=== PATIENT | male | born 1965 | race Caucasian/White ===

== ENCOUNTER 2017-12-26 00:36 | Inpatient (IN) | payer OTHER ==
--- NOTE | 2017-12-26 00:53 | RADIOLOGY REPORT (SQ) ---
EXAM DESCRIPTION: XR CHEST 1 VIEW COMPLETED DATE/TME: 12/26/2017 00:00 CLINICAL HISTORY: 52 years Male, Stroke alert, preadmit screening COMPARISON: None. NUMBER OF VIEWS/TECHNIQUE: 1/AP FINDINGS: Adequate lung volume, clear parenchyma, normal cardiac silhouette, and intact bony thorax. IMPRESSION: No acute cardiopulmonary findings.
--- NOTE | 2017-12-26 00:58 | RADIOLOGY REPORT (SQ) ---
EXAM DESCRIPTION: CT HEAD WITHOUT IV CONTRAST COMPLETED DATE/TME: 12/26/2017 00:00 CLINICAL HISTORY: 52 years Male, Stroke alert COMPARISON: None. TECHNIQUE: No contrast. Coronal and sagittal reformat. This exam was performed according to our departmental dose-optimization program, which includes automated exposure control, adjustment of the mA and/or kV according to patient size and/or use of iterative reconstruction technique. FINDINGS: No hemorrhage or infarct. No mass, mass effect, or midline shift. 1.6 hour left maxillary retention cyst mucocele. Brain and extra-axial structures appear otherwise intact. IMPRESSION: No acute findings.
[2017-12-26] MEDS ORDERED: ASPIRIN 325 MG TABLET PO ONE (01:04)
--- NOTE | 2017-12-26 01:07 | ER Document Report ---
ED NIH Stroke Scale - NIH Stroke Scale *: 1. NIH scale should be completed with appropriate accompanying assessment tools. *: 2. The NIH should reflect what the patient is capable of doing and should not be coached by the clinician. 1a. Level of Consciousness: 0=Alert;keenly responsive -: 1=Drowsy -: 2=Obtunded -: 3=Coma/unresponsive or reflex to noxious stimuli. 1a. Responses: 0 1b. Orientation Questions: a. What month is it? -: b. How old are you? -: 0=Answers both questions correctly. -: 1=Answers one question correctly or patient is intubated or has orotracheal trauma. -: 2=Answers neither question correctly. 1b. Responses: 0 1c. Response to commands: a. Open and close eyes? -: b. Molder Machine Tender and release hand? -: Credit is given despite weakness. Demonstration of task is permitted. Substitute command if hands cannot be used. -: 0=Performs both tasks correctly -: 1=Performs one task correctly -: 2=Performs neither task correctly 1c. Responses: 0 2. Gaze: Establish eye contact and instruct patient to "Follow my finger" -: 0=Normal -: 1=Partial gaze palsy. Gaze is abnormal in one or both eyes, but where forced deviation or total gaze paresis is not present. -: 2=Forced deviation or total gaze paresis. 2. Responses: 0 3. Visual El: Sees fingers in all four quadrants. -: 0=No visual loss. -: 1=Partial hemianopsia. -: 2=Complete hemianopsia. -: 3=Bilateral hemianopsia (including Cortical blindness) 3. Responses: 0 4. Facial Movement: Instruct patient to: -: a. Show me your teeth -: b. Raise your eyebrows -: c. Close your eyes -: d. Smile -: 0=Normal symmetrical movement -: 1=Minor paralysis (flattened nasolabial fold, asymmetry on smiling). -: 2=Partial paralysis (total or near total paralysis of lower face). -: 3=Complete paralysis of upper and lower face 4. Responses: 1 5. Motor functions (left arm): Alternate sides and extend each arm with palms down (90 degrees if sitting or 45 degrees for supine). -: 0=No drift;limb holds for full 10 seconds. -: 1=Drift; limb holds but drifts down before full 10 seconds, but does not hit bed. -: 2=Some effort against gravity; limb cannot get to or maintain position. -: 3=No effort against gravity; limb falls. -: 4=No movement. -: UN=Amputation, joint fusion, explain in comments. 5. Responses (left arm): 1 5. Motor Functions (right arm): Alternate sides and extend each arm with palms down (90 degrees if sitting or 45 degrees for supine). -: 0=No drift;limb holds for full 10 seconds. -: 1=Drift; limb holds but drifts down before full 10 seconds, but does not hit bed. -: 2=Some effort against gravity; limb cannot get to or maintain position. -: 3=No effort against gravity; limb falls. -: 4=No movement. -: UN=Amputation, joint fusion, explain in comments. 5. Responses (right arm): 0 6. Motor Functions (left leg): With patient lying supine, alternate sides and extend each leg (30 degrees always while supine). -: 0=No drift, leg holds position for full 5 seconds -: 1=Drift; leg falls before full 5 seconds but does not hit bed. -: 2=Some effort against gravity, leg falls to bed but some effort against gravity. -: 3=No effort against gravity, leg falls to bed immediately. -: 4=No movement. -: UN=Amputation, joint fusion; explain in comments. 6. Responses (left leg): 1 6. Motor Functions (right leg): With patient lying supine, alternate sides and extend each leg (30 degrees always while supine). -: 0=No drift, leg holds position for full 5 seconds -: 1=Drift; leg falls before full 5 seconds but does not hit bed. -: 2=Some effort against gravity, leg falls to bed but some effort against gravity. -: 3=No effort against gravity, leg falls to bed immediately. -: 4=No movement. -: UN=Amputation, joint fusion; explain in comments. 6. Responses (right leg): 0 7. Limb Ataxia: With eyes open instruct patient to: -: a. "Touch your finger to your nose". -: b. "Touch your heel to your gonzalez" -: 0=Absent -: 1=Present in one limb. -: 2=Present in two limbs. -: UN=Amputation or joint fusion; explain in comments. 7. Responses: 0 8. Sensory: Test sensation using pinprick or noxious stimuli. Test as many body parts as possible. -: 0=Normal;no sensory loss -: 1=Mile to moderate sensory loss (patient feels pin prick but is less sharp on affected side). -: 2=Severe or total sensory loss. 8. Responses: 1 9. Best Language: Instruct patient to: -: a. "Describe what you see in this picture." -: b. "Name the items in this picture." -: c. "Read these sentences." -: 0=No aphasia, normal -: 1=Mild to moderate aphasia. -: 2=Severe aphasia -: 3=Mute, global aphasia, no usable speech or auditory comprehension. 9. Responses: 0 10. Articulation, Dysarthia: Instruct patient to: -: "Read these words" or "Repeat these words" -: 0=Normal -: 1=Mild to moderate; patient may slur some words but can be understood without difficulty. -: 2=Severe; patients speech so slurred as to be unintelligible in the absence of dysphasia. -: UN=Intubated or other physical barrier, explain in comments. 10. Responses: 0 11. Extinction or inattention: 0=No abnormality -: 1= Visual, tactile, auditory, spatial, or personal inattention or extinction to bilateral simulation in one or the sensory modalities. -: 2=Profound noemi-inattention or noemi-inattention to more than one modality; does not recognize own hand. 11. Responses: 0 Total Score: 4
--- NOTE | 2017-12-26 01:11 | ER Document Report ---
ED General - General Chief Complaint: S/S of Possible Stroke Stated Complaint: POSSIBLE STROKE Time Seen by Provider: 12/26/17 00:43 - Related Data Allergies/Adverse Reactions: No Known Allergies Allergy (Unverified 12/26/17 02:45) Past Medical History - Social History Smoking Status: Unknown if Ever Smoked Frequency of alcohol use: None Drug Abuse: None Family History: Reviewed & Not Pertinent Physical Exam - Vital signs Vitals: Pulse Resp BP Pulse Ox 102 H 19 187/105 H 97 12/26/17 00:51 12/26/17 00:51 12/26/17 00:51 12/26/17 00:51 Course - Re-evaluation Re-evalutation: 12/26/17 01:07 Patient is approximately 1 hour out from the onset of his strokelike symptoms. Physical exam is consistent with that of a stroke. Patient has not had any worsening or improvement of his symptoms. His stroke scale currently is 4. I explained the risks and benefits of thrombolytics with the patient and his . Also use a visual aid by using the [employer] emergency medicine visual aid in explaining the fact that thrombolytics. Patient and his showed good understanding of the risks and benefits of thrombolytics. At this time the patient does not want to receive thrombolytics. Talked to patient about calling a tertiary center about transfer to consider mechanical intervention if it is appropriate. Patient says he wants to speak with his about 15 minutes before considering this. He is concerned because of his lack of insurance also transfer. I explained to the patient that we still treat people even without insurance and understand his concerns. I will reassess the patient here in about 10 minutes and find out his decision. 12/26/17 01:22 I reassessed the patient. His symptoms are remaining the same. He said no worsening or improvement. Patient does not want to be transferred. He understands the benefits of transfer and being reassessed for possible clot retrieval. Patient says he prefers not to go through this and just wants to stay here and be admitted as an observation. He is aware that the only treatment we can offer him here as aspirin or the thrombolytics. Patient continues to refuse thrombolytics which is understanding obtainable being that his symptoms are not severe. I did make patient aware that his symptoms could worsen. Patient is aware of this. I informed patient to let us know immediately if he feels that his symptoms are worse in any way. 12/26/17 02:55 On reevaluation the patient's left leg symptoms have resolved. He has good strength and sensation in his left leg. He has been able stand and walk to the bathroom. Patient still has weakness in his left arm. Left facial droop is also improved. Patient remains hypertensive. I would not treat his hypertension as I do not want to drop it in case this is a watershed infarct. I feel dropping his pressure acutely would cause worsening of his stroke. I spoke with the hospitalist, Dr. Calderón, who agrees to evaluate the patient for admission. Dictation of this chart was performed using voice recognition software; therefore, there may be some unintended grammatical errors. - Vital Signs Vital signs: Temp Pulse Resp BP Pulse Ox 102 H 14 193/94 H 97 12/26/17 00:51 12/26/17 02:01 12/26/17 02:01 12/26/17 02:01 - Laboratory Result Diagrams: 12/26/17 00:58 12/26/17 00:58 Laboratory results interpreted by me: 12/26/17 12/26/17 12/26/17 00:57 00:58 00:58 RBC 6.06 H Hgb 17.3 H Chloride 96 L Glucose 321 H POC Glucose 319 H - EKG Interpretation by Me Additional EKG results interpreted by me: 12/26/17 01:23 EKG is reviewed and interpreted by me. EKG shows sinus tachycardia with a rate of [address] segment elevation or depression. No ischemic T-wave inversions. NM interval, QRS duration, QTc intervals are within normal range. No old EKG available for comparison. Discharge - Discharge Clinical Impression: Stroke Qualifiers: CVA mechanism: unspecified Qualified Code(s): I63.9 - Cerebral infarction, unspecified Condition: Good Admitting Provider: Hospitalist Unit Admitted: [facility]
[2017-12-26 01:19] LABS: ABSOLUTE EOSINOPHILS # (AUTO) 0.2 10^3/uL (0.0-0.6); ABSOLUTE LYMPHOCYTES (AUTO) 3.2 10^3/uL (0.5-4.7); ABSOLUTE MONOCYTES (AUTO) 0.4 10^3/uL (0.1-1.4); ABSOLUTE NEUT (AUTO) 3.9 10^3/uL (1.7-8.2); BASOPHILS % (AUTO) 0.4 % (0-2); EOSINOPHILS % (AUTO) 2.9 % (0-6); HEMATOCRIT 49.5 % (37.9-51.0); HEMOGLOBIN 17.3 g/dL (13.5-17.0); LYMPHOCYTES % (AUTO) 41.2 % (13-45); MEAN CORPUSCULAR HEMOGLOBIN 28.5 pg (27.0-33.4); MEAN CORPUSCULAR HGB CONC 34.9 g/dL (32.0-36.0); MEAN CORPUSCULAR VOLUME 82 fl (80-97); MONOCYTES % (AUTO) 5.1 % (3-13); PLATELET COUNT 242 10^3/uL (150-450); RED BLOOD COUNT 6.06 10^6/uL (4.35-5.55); RED CELL DISTRIBUTION WIDTH 13.6 % (11.5-14.0); SEGMENTED NEUTROPHILS % (AUTO) 50.4 % (42-78); TOTAL CELLS COUNTED % (AUTO) 100 %; WHITE BLOOD COUNT 7.8 10^3/uL (4.0-10.5)
[2017-12-26 01:22] LABS: INTERNATIONAL RATION (INR) 0.89; PARTIAL THROMBOPLASTIN TIME 25.5 SEC (23.5-35.8)
[2017-12-26 01:26] LABS: PROTHROMBIN TIME 12.5 SEC (11.4-15.4)
[2017-12-26 01:32] LABS: ALANINE AMINOTRANSFERASE 50 U/L (21-72); ALBUMIN 4.8 g/dL (3.5-5.0); ALKALINE PHOSPHATASE 85 U/L (38-126); ANION GAP 16 (5-19); ASPARTATE AMINO TRANSFERASE 28 U/L (17-59); BILIRUBIN,DIRECT 0.3 mg/dL (0.0-0.4); BILIRUBIN,TOTAL 0.5 mg/dL (0.2-1.3); BLOOD UREA NITROGEN 15 mg/dL (7-20); CALCIUM 10.1 mg/dL (8.4-10.2); CARBON DIOXIDE 27 mmol/L (22-30); CHLORIDE 96 mmol/L (98-107); GLUCOSE 321 mg/dL (75-110); POTASSIUM 4.2 mmol/L (3.6-5.0); SODIUM 139.3 mmol/L (137-145); TOTAL PROTEIN 8.1 g/dL (6.3-8.2)
[2017-12-26 03:03] LABS: APPEARANCE,URINE CLEAR; BILIRUBIN,URINE NEGATIVE (NEGATIVE); COLOR,URINE STRAW; GLUCOSE, URINE >=500 mg/dL (NEGATIVE); KETONES,URINE TRACE mg/dL (NEGATIVE); LEUKOCYTE ESTERASE,URINE NEGATIVE (NEGATIVE); NITRITE,URINE NEGATIVE (NEGATIVE); PROTEIN,URINE 30 mg/dL (NEGATIVE); URINE SPECIFIC GRAVITY 1.017; UROBILINOGEN,URINE NEGATIVE mg/dL (<2.0)
[2017-12-26] MEDS ORDERED: DEXTROSE 50%-WATER 25 GM/50 ML DISP.SYRIN IV PRN ×2 (04:18)
[2017-12-26] MEDS ORDERED: DEXTROSE 40% GEL 15 GM TUBE PO PRN ×2 (04:18)
[2017-12-26] MEDS ORDERED: ACETAMINOPHEN 325 MG TABLET PO PRN (04:18)
[2017-12-26] MEDS ORDERED: GLUCAGON,HUMAN RECOMB 1 MG INJ SUBCUT PRN (04:18)
--- NOTE | 2017-12-26 07:21 | PDOC H&P ---
History of Present Illness Admission Date/PCP: 12/26/17 03:08 none. Patient complains of: The left-sided weakness and facial droop History of Present Illness: KAILASH GOMEZ is a 52 year old male with past medical history of hypertension and diabetes who currently does not take medication or follow-up with PCP patient with acute onset of left-sided weakness and facial droop and slurred speech. Patient's symptoms started 1 hour prior to arrival to emergency room. Patient denies chest pain or shortness of breath or headache or dizziness or palpitation. Patient denies seizures or syncope or fever or chills no nausea vomiting. On arrival to emergency room patient was alert awake oriented however he was found to have left-sided upper and lower extremity weakness along with facial asymmetry. CT head was negative for acute process. Patient was offered TPA however he refused. EKG shows sinus tachycardia with nonspecific ST changes. His laboratory workup was unremarkable except for hyperglycemia.. His initial NIH scale was 4. Patient was referred to hospital admission. Past Medical History Cardiac Medical History: Reports: Hypertension Endocrine Medical History: Reports: Diabetes Mellitus Type 2 Social History Information Source: Patient Smoking Status: Former Smoker Number of Years Smokin Last Time Smoked: 30 yrs ago Frequency of Alcohol Use: Occasional Hx Recreational Drug Use: No Hx Prescription Drug Abuse: No Family History Family History: Reviewed & Not Pertinent Parental Family History Reviewed: No Children Family History Reviewed: No Sibling(s) Family History Reviewed.: No Medication/Allergy Allergies/Adverse Reactions: No Known Allergies Allergy (Unverified 12/26/17 02:45) Review of Systems All systems: reviewed and no additional remarkable complaints except as stated Physical Exam Vital Signs: Temp Pulse Resp BP Pulse Ox 98.5 F 108 H 20 157/92 H 96 12/26/17 04:54 12/26/17 05:00 12/26/17 05:00 12/26/17 05:00 12/26/17 05:00 Intake & Output 12/25/17 12/26/17 12/27/17 06:59 06:59 06:59 Output Total 450 Balance -450 Weight 193 lb 5.526 oz General appearance: PRESENT: no acute distress, well-developed, well-nourished Head exam: PRESENT: atraumatic, normocephalic Eye exam: PRESENT: conjunctiva pink, EOMI, PERRLA. ABSENT: scleral icterus Ear exam: PRESENT: normal external ear exam Mouth exam: PRESENT: moist, tongue midline Neck exam: ABSENT: carotid bruit, JVD, lymphadenopathy, thyromegaly Respiratory exam: PRESENT: clear to auscultation jorge. ABSENT: rales, rhonchi, wheezes Cardiovascular exam: PRESENT: RRR. ABSENT: diastolic murmur, rubs, systolic murmur Pulses: PRESENT: normal dorsalis pedis pul GI/Abdominal exam: PRESENT: normal bowel sounds, soft. ABSENT: distended, guarding, mass, organolmegaly, rebound, tenderness Rectal exam: PRESENT: deferred Gentrourinary exam: ABSENT: ecchymosis, erythema, lacerations, lesions, scrotal swelling, testicular tenderness, urethral discharge, indwelling catheter, other Extremities exam: ABSENT: calf tenderness, clubbing, full ROM, joint swelling, pedal edema, tenderness, +1 edema, +2 edema, other Neurological exam: PRESENT: alert, altered, awake, oriented to person, oriented to place, oriented to time, oriented to situation, other - Patient with left facial droop and left upper extremity 2 out of 5 in lower extremity 3 out of 5 weakness. Psychiatric exam: PRESENT: appropriate affect, normal mood. ABSENT: homicidal ideation, suicidal ideation Skin exam: PRESENT: dry, intact, warm. ABSENT: cyanosis, rash Results Laboratory Results: All labs reviewed EKG Comments: Personally reviewed by me shows sinus tachycardia with nonspecific ST-T changes Impressions: Chest X-Ray 12/26/17 00:00 IMPRESSION: No acute cardiopulmonary findings. Head CT 12/26/17 00:00 IMPRESSION: No acute findings. Status: Image reviewed by me Assessment & Plan - Diagnosis (1) CVA (cerebral vascular accident) Qualifiers: CVA mechanism: unspecified Qualified Code(s): I63.9 - Cerebral infarction, unspecified Is this a current diagnosis for this admission?: Yes Plan: Patient with left-sided weakness and facial droop most likely has CVA or TIA. Patient will be admitted as inpatient and will initiate stroke workup with MRI of the echo and carotid Doppler. Will start patient on aspirin and statin. Will check lipid panel. Speech evaluation. PT and OT. (2) HTN (hypertension), benign Is this a current diagnosis for this admission?: No Plan: Blood pressure stable will resume current home medications (3) Diabetes 1.5, managed as type 2 Is this a current diagnosis for this admission?: No Plan: Patient has hyperglycemia will start insulin sliding scale - Time Time Spent: 30 to 50 Minutes - Inpatient Certification Medical Necessity: Need for Neurological Checks
[2017-12-26] MEDS: ENOXAPARIN SODIUM INJ 40 MG/0.4 ML DISP.SYRIN SUBCUT SCH (09:15)
[2017-12-26] MEDS: ASPIRIN 325 MG TABLET, ENT COATED PO SCH (09:15)
[2017-12-26] MEDS ORDERED: LORAZEPAM INJ 2 MG/1 ML VIAL IV PRN (10:00)
--- NOTE | 2017-12-26 10:48 | EKG REPORT ---
SEVERITY:- BORDERLINE ECG - SINUS TACHYCARDIA BORDERLINE INFERIOR Q WAVES BORDERLINE T ABNORMALITIES, INFERIOR LEADS : Confirmed by: Yaquelin Damon 26-Dec-2017 10:47:14
[2017-12-26] MEDS: ONDANSETRON HCL INJ/PF 4 MG/2 ML SDV IV PRN ×2 (11:34→21:47)
--- NOTE | 2017-12-26 12:54 | Progress Note ---
Provider Note Provider Note: Patient was seen on rounds today He still has left facial droop and left sided weakness although slightly better His speech is also better His A1c is 13, he used to be on metformin but caused him GI problems and made him feel sick We will start him on Lantus 5 units at night Start IV fluids normal saline 100/h Follow-up on workup ordered on admission
[2017-12-26 13:31] LABS: CHOLESTEROL 248.34 mg/dL (0-200); TRIGLYCERIDES 524 mg/dL (<150)
[2017-12-26 13:41] LABS: DIRECT LDL 134 mg/dL (<100)
[2017-12-26] MEDS: NORMAL SALINE 1000 ML 1,000 ML IV PRN (16:06)
--- NOTE | 2017-12-26 16:19 | RADIOLOGY REPORT (SQ) ---
EXAM DESCRIPTION: MRI HEAD WITHOUT COMPLETED DATE/TIME: 12/26/2017 2:25 pm REASON FOR STUDY: cva COMPARISON: CT brain 12/26/2017 TECHNIQUE: Multiplanar imaging includes non-contrasted T1, T2, FLAIR, and diffusion with ADC map seq uences. Images stored on PACS. LIMITATIONS: Mild motion artifact FINDINGS: ANATOMY: No developmental anomalies. Normal vascular flow voids. Pituitary fossa normal. CSF SPACES: Normal in size and contour. No hemorrhage. CEREBRUM: Diffusion and FLAIR images are positive for acute nonhemorrhagic infarct in the right poste rior frontal deep periventricular white matter. This is best shown on axial image 20. No significan t local mass effect. No midline shift Remainder of the cerebral hemispheres are otherwise unremarkable. No masses. No hemorrhage. No oth er areas of ischemic change POSTERIOR FOSSA: No signal alteration. No hemorrhage. No edema, masses or mass effect. Internal thiago tory canals, cerebello-pontine angles, mastoids normal. DIFFUSION IMAGING: Positive for acute nonhemorrhagic infarct in the right posterior frontal deep abril ventricular white matter ORBITS: No masses. Globes normal. PARANASAL SINUSES: No fluid levels. Mucosa normal. OTHER: This report was called to the patient's nurse, Brigida LANGFORD 1600 hours, 12/26/2017 IMPRESSION: Acute nonhemorrhagic infarct right posterior frontal deep periventricular white matter. EVIDENCE OF ACUTE STROKE: Yes TECHNICAL DOCUMENTATION: JOB ID: [id number] [employer]- All Rights Reserved Reading location - IP[facility]workstation name: [email or web address]
[2017-12-26] MEDS ORDERED: METOCLOPRAMIDE HCL INJ/PF 10 MG/2 ML SDV IV ONE (17:00)
[2017-12-26] MEDS: INSULIN LISPRO 100 UNIT/ML 3 ML VIAL SUBCUT PRN ×2 (18:14→21:38)
[2017-12-26] MEDS: ATORVASTATIN CALCIUM 40 MG TABLET PO SCH (21:38)
[2017-12-26] MEDS ORDERED: INSULIN GLARGINE,HUM.REC.ANLOG 1,000 UNIT/10 ML UNIT SUBCUT SCH (22:00)
[2017-12-26] MEDS ORDERED: INSULIN GLARGINE,HUM.REC.ANLOG 300 UNIT/3 ML INSULN.PEN SUBCUT SCH (22:00)
[2017-12-27] MEDS: LORAZEPAM 0.5 MG TABLET PO PRN ×2 (00:01→22:26)
[2017-12-27 04:57] LABS: ABSOLUTE LYMPHOCYTES (AUTO) 3.8 10^3/uL (0.5-4.7); ABSOLUTE MONOCYTES (AUTO) 0.7 10^3/uL (0.1-1.4); BASOPHILS % (AUTO) 0.2 % (0-2); EOSINOPHILS % (AUTO) 0.4 % (0-6); HEMATOCRIT 46.4 % (37.9-51.0); HEMOGLOBIN 15.7 g/dL (13.5-17.0); LYMPHOCYTES % (AUTO) 32.5 % (13-45); MEAN CORPUSCULAR HEMOGLOBIN 27.7 pg (27.0-33.4); MEAN CORPUSCULAR HGB CONC 33.7 g/dL (32.0-36.0); MEAN CORPUSCULAR VOLUME 82 fl (80-97); MONOCYTES % (AUTO) 6.4 % (3-13); PLATELET COUNT 269 10^3/uL (150-450); RED BLOOD COUNT 5.65 10^6/uL (4.35-5.55); RED CELL DISTRIBUTION WIDTH 13.9 % (11.5-14.0); SEGMENTED NEUTROPHILS % (AUTO) 60.5 % (42-78); TOTAL CELLS COUNTED % (AUTO) 100 %; WHITE BLOOD COUNT 11.6 10^3/uL (4.0-10.5)
[2017-12-27 05:32] LABS: ALANINE AMINOTRANSFERASE 35 U/L (21-72); ALBUMIN 4.4 g/dL (3.5-5.0); ALKALINE PHOSPHATASE 72 U/L (38-126); ANION GAP 14 (5-19); ASPARTATE AMINO TRANSFERASE 56 U/L (17-59); BILIRUBIN,DIRECT 0.4 mg/dL (0.0-0.4); BILIRUBIN,TOTAL 0.7 mg/dL (0.2-1.3); BLOOD UREA NITROGEN 25 mg/dL (7-20); CALCIUM 9.3 mg/dL (8.4-10.2); CARBON DIOXIDE 27 mmol/L (22-30); CHLORIDE 101 mmol/L (98-107); GLUCOSE 262 mg/dL (75-110); POTASSIUM 3.9 mmol/L (3.6-5.0); TOTAL PROTEIN 7.7 g/dL (6.3-8.2)
[2017-12-27] MEDS: INSULIN LISPRO 100 UNIT/ML 3 ML VIAL SUBCUT PRN ×3 (08:37→22:25)
--- NOTE | 2017-12-27 10:01 | EKG REPORT ---
SEVERITY:- ABNORMAL ECG - SINUS RHYTHM RIGHT AXIS DEVIATION NONSPECIFIC T ABNORMALITIES, DIFFUSE LEADS : Confirmed by: Yaquelin Damon 27-Dec-2017 10:00:31
[2017-12-27] MEDS: ASPIRIN 325 MG TABLET, ENT COATED PO SCH (10:48)
[2017-12-27] MEDS: ENOXAPARIN SODIUM INJ 40 MG/0.4 ML DISP.SYRIN SUBCUT SCH (10:48)
--- NOTE | 2017-12-27 11:37 | PDOC PROGRESS REPORT ---
Subjective Progress Note for:: 12/27/17 Subjective:: Patient had issues with insomnia and received Ativan which helped him sleep His left leg improving in strength but the left upper extremity is actually weaker He continues to have left facial droop and slurred speech which is unchanged His A1c is 13 and was started on 5 units of Lantus which may be increased today due to hypoglycemia still Reason For Visit: LEFT SIDED WEAKNESS Physical Exam Vital Signs: Temp Pulse Resp BP Pulse Ox 97.4 F 94 16 130/71 H 98 12/27/17 07:04 12/27/17 08:00 12/27/17 08:00 12/27/17 08:00 12/27/17 08:00 Intake & Output 12/26/17 12/27/17 12/28/17 06:59 06:59 06:59 Intake Total 540 Output Total 450 400 Balance -450 140 Weight 193 lb 5.526 oz 195 lb 1.745 oz General appearance: PRESENT: no acute distress, cooperative Head exam: ABSENT: atraumatic, normocephalic Eye exam: PRESENT: EOMI, PERRLA. ABSENT: conjunctival injection, conjunctiva pink Ear exam: ABSENT: bleeding, drainage Throat exam: ABSENT: post pharyngeal erythema Neck exam: ABSENT: JVD, meningismus, tenderness, thyromegaly Respiratory exam: PRESENT: clear to auscultation jorge. ABSENT: accessory muscle use Cardiovascular exam: PRESENT: RRR. ABSENT: diastolic murmur, rubs, systolic murmur Pulses: PRESENT: normal carotid pulses Vascular exam: PRESENT: normal capillary refill GI/Abdominal exam: PRESENT: normal bowel sounds, soft. ABSENT: distended, guarding, mass, organolmegaly, rebound, tenderness Extremities exam: PRESENT: full ROM. ABSENT: calf tenderness, clubbing, pedal edema Neurological exam: PRESENT: alert, awake, oriented to person, oriented to place , oriented to time, oriented to situation, other - Left-sided hemiparesis and left facial droop and slight dysarthria Results Laboratory Results: 12/27/17 04:15 12/27/17 04:15 12/27/17 12/27/17 04:15 04:15 WBC 11.6 H RBC 5.65 H Hgb 15.7 Hct 46.4 MCV 82 MCH 27.7 MCHC 33.7 RDW 13.9 Plt Count 269 Seg Neutrophils % 60.5 Lymphocytes % 32.5 Monocytes % 6.4 Eosinophils % 0.4 Basophils % 0.2 Absolute Neutrophils 7.0 Absolute Lymphocytes 3.8 Absolute Monocytes 0.7 Absolute Eosinophils 0.0 Absolute Basophils 0.0 Sodium 142.0 Potassium 3.9 Chloride 101 Carbon Dioxide 27 Anion Gap 14 BUN 25 H Creatinine 1.05 Est GFR ( Amer) > 60 Est GFR (Non-Af Amer) > 60 Glucose 262 H Calcium 9.3 Total Bilirubin 0.7 AST 56 ALT 35 Alkaline Phosphatase 72 Total Protein 7.7 Albumin 4.4 Impressions: Chest X-Ray 12/26/17 00:00 IMPRESSION: No acute cardiopulmonary findings. Head CT 12/26/17 00:00 IMPRESSION: No acute findings. Head MRI 12/26/17 00:00 IMPRESSION: Acute nonhemorrhagic infarct right posterior frontal deep periventricular white matter. EVIDENCE OF ACUTE STROKE: Yes Assessment & Plan - Diagnosis (1) CVA (cerebral vascular accident) Qualifiers: CVA mechanism: unspecified Qualified Code(s): I63.9 - Cerebral infarction, unspecified Is this a current diagnosis for this admission?: Yes Plan: The patient refused TPA on admission MRI is positive right posterior periventricular white matter infarction Echocardiogram and carotid ultrasound pending Continue aspirin and statin Speech therapy, physical therapy and Occupational Therapy (2) Diabetes 1.5, managed as type 2 Is this a current diagnosis for this admission?: No Plan: Patient apparently had GI upset as a reaction to metformin His A1c is 13 and was started Lantus yesterday and we will increase his dose today Continue short acting insulin coverage (3) HTN (hypertension), benign Is this a current diagnosis for this admission?: No Plan: Blood pressures currently stable (4) Stroke Qualifiers: CVA mechanism: unspecified Qualified Code(s): I63.9 - Cerebral infarction, unspecified Is this a current diagnosis for this admission?: Yes
[2017-12-27] MEDS: NORMAL SALINE 1000 ML 1,000 ML IV PRN ×2 (13:33→22:26)
[2017-12-27] MEDS: INSULIN GLARGINE,HUM.REC.ANLOG 300 UNIT/3 ML INSULN.PEN SUBCUT SCH (22:25)
[2017-12-27] MEDS: ATORVASTATIN CALCIUM 40 MG TABLET PO SCH (22:25)
[2017-12-28] MEDS: INSULIN LISPRO 100 UNIT/ML 3 ML VIAL SUBCUT PRN ×3 (08:18→18:10)
[2017-12-28] MEDS: ENOXAPARIN SODIUM INJ 40 MG/0.4 ML DISP.SYRIN SUBCUT SCH (11:29)
[2017-12-28] MEDS: ASPIRIN 325 MG TABLET, ENT COATED PO SCH (11:29)
[2017-12-28] MEDS: NORMAL SALINE 1000 ML 1,000 ML IV PRN (12:07)
--- NOTE | 2017-12-28 12:47 | PDOC PROGRESS REPORT ---
Subjective Progress Note for:: 12/28/17 Subjective:: appears to be improving echo and cus still pending Reason For Visit: LEFT SIDED WEAKNESS Physical Exam Vital Signs: Temp Pulse Resp BP Pulse Ox 98.1 F 85 18 161/83 H 99 12/28/17 07:14 12/28/17 07:14 12/28/17 07:14 12/28/17 07:14 12/28/17 07:14 Intake & Output 12/27/17 12/28/17 12/29/17 06:59 06:59 06:59 Intake Total 1540 1625 Output Total 400 2150 Balance 1140 -525 Weight 195 lb 1.745 oz 196 lb 6.91 oz General appearance: PRESENT: cooperative. ABSENT: no acute distress Head exam: PRESENT: atraumatic, normocephalic Eye exam: PRESENT: EOMI, PERRLA Ear exam: ABSENT: bleeding, drainage Throat exam: ABSENT: post pharyngeal erythema Neck exam: PRESENT: JVD. ABSENT: meningismus, tenderness, thyromegaly Respiratory exam: PRESENT: clear to auscultation jorge. ABSENT: rales, rhonchi, wheezes Cardiovascular exam: PRESENT: RRR. ABSENT: diastolic murmur, rubs, systolic murmur Vascular exam: PRESENT: normal capillary refill GI/Abdominal exam: PRESENT: normal bowel sounds, soft. ABSENT: distended, guarding, mass, organolmegaly, rebound, tenderness Neurological exam: PRESENT: other - left facial droop left side hemiparesis Results Laboratory Results: 12/27/17 04:15 12/27/17 04:15 Impressions: Chest X-Ray 12/26/17 00:00 IMPRESSION: No acute cardiopulmonary findings. Head CT 12/26/17 00:00 IMPRESSION: No acute findings. Head MRI 12/26/17 00:00 IMPRESSION: Acute nonhemorrhagic infarct right posterior frontal deep periventricular white matter. EVIDENCE OF ACUTE STROKE: Yes Assessment & Plan - Diagnosis (1) CVA (cerebral vascular accident) Qualifiers: CVA mechanism: unspecified Qualified Code(s): I63.9 - Cerebral infarction, unspecified Is this a current diagnosis for this admission?: Yes Plan: The patient refused TPA on admission MRI is positive right posterior periventricular white matter infarction Echocardiogram and carotid ultrasound still pending Continue aspirin and statin Speech therapy, physical therapy and Occupational Therapy (2) Diabetes 1.5, managed as type 2 Is this a current diagnosis for this admission?: No Plan: Patient apparently had GI upset as a reaction to metformin His A1c is 13 and was started Lantus and his dose increased to 10 glucose levels are better Continue short acting insulin coverage (3) HTN (hypertension), benign Is this a current diagnosis for this admission?: No Plan: Blood pressures currently stable (4) Stroke Qualifiers: CVA mechanism: unspecified Qualified Code(s): I63.9 - Cerebral infarction, unspecified Is this a current diagnosis for this admission?: Yes
--- NOTE | 2017-12-28 17:39 | RADIOLOGY REPORT (SQ) ---
EXAM DESCRIPTION: CAROTID DOPPLER COMPLETED DATE/TIME: 12/28/2017 5:30 pm REASON FOR STUDY: stroke COMPARISON: None. TECHNIQUE: Grayscale ultrasound, Doppler velocity and spectra, and color Doppler images acquired of the extra-cranial carotid and vertebral arteries. Images stored on PACS. LIMITATIONS: None. FINDINGS: RIGHT CAROTID CCA Velocities: Within normal limits. ICA Velocities Peak systolic 0.76 m/s. End diastolic 0.26 m/s. Proximal ICA/CCA peak systolic ratio 1.06. Spectra normal. No significant plaque. LEFT CAROTID CCA Velocities: Within normal limits. ICA Velocities Peak systolic 0.63 m/s. End diastolic 0.23 m/s. Proximal ICA/CCA peak systolic ratio 0.75. Spectra normal. No significant plaque. VERTEBRAL ARTERIES: Antegrade flow. Normal waveforms. SUBCLAVIAN ARTERIES: No finding. OTHER: No other significant finding. IMPRESSION: NO HEMODYNAMICALLY SIGNIFICANT STENOSIS. COMMENT: Quality ID #[id number]: Velocity criteria are extrapolated from the diameter data as defined by t he Society of Radiologists in Ultrasound Consensus Conference. Radiology 2003: 229; 340-346. TECHNICAL DOCUMENTATION: JOB ID: [id number] [employer]- All Rights Reserved Reading location - IP/workstation name: [email or web address]
--- NOTE | 2017-12-28 19:23 | XCELERA REPORT ---
[address] [address] Transthoracic Echocardiogram Report Name: KAILASH GOMEZ Age: 52 yrs Gender: Male : 1965 Patient Status: Inpatient Patient Location: [address] [place], [place] [id number] Study Date: 12/28/2017 04:18 PM Height: 69 in Weight: 196 lb BSA: 2.0 m2 Procedure: A complete two-dimensional transthoracic echocardiogram was performed (2D, M-mode, spectral and color flow Doppler). The study was technically adequate with some images being suboptimal in quality. Reason For Study: stroke Ordering Physician: ROLAND BURGESS Performed By: Lance Menjivar Interpretation Summary The left ventricular ejection fraction is normal. There is mild concentric left ventricular hypertrophy. The left ventricle is grossly normal size. Doppler measurements suggest pseudonormalized left ventricular relaxation, which is associated with grade II/IV or mild to moderate diastolic dysfunction Wall motion cannot be accurately commented on, but no definite regional wall motion abnormalities noted. The right ventricular systolic function is normal. The right ventricle is grossly normal size. There is normal right ventricular wall thickness. The left atrial size is normal. The right atrium is normal in size There is no mitral regurgitation noted. There is no mitral valve stenosis. There is no aortic valve stenosis There is no tricuspid stenosis. There is a trace or physiologic amount of tricuspid regurgitation The aortic root is not well visualized but is probably normal size. The inferior vena cava was not well visualized No definite cardiac source of CVA/TIA noted on this particular trans- thoracic study. Consider NICOLA if clinically indicated. May consider mobile cardiac telemetry monitoring (MCT) for ruling out transient AFIB. MMode/2D Measurements & Calculations RVDd: 3.1 cm LVIDd: 3.9 cm FS: 31.6 % Ao root diam: 2.9 cm IVSd: 1.2 cm LVIDs: 2.7 cm EDV(Teich): 67.6 ml LVPWd: 1.1 cm ESV(Teich): 26.9 ml Ao root area: 6.5 cm2 EF(Teich): 60.2 % LA dimension: 3.3 cm LVOT diam: 2.1 cm LVOT area: 3.4 cm2 Doppler Measurements & Calculations MV E max nikhil: MV P1/2t max nikhil: Ao V2 max: LV V1 max P.8 cm/sec 78.2 cm/sec 164.2 cm/sec 2.5 mmHg MV A max nikhil: MV P1/2t: 77.2 msec Ao max PG: LV V1 max: 83.1 cm/sec MVA(P1/2t): 2.9 cm2 10.8 mmHg 79.2 cm/sec MV E/A: 0.91 MV dec slope: JULIETA(V,D): 1.6 cm2 296.7 cm/sec2 MV dec time: 0.24 sec PA V2 max: 72.6 cm/sec PA max P.1 mmHg Left Ventricle The left ventricle is grossly normal size. There is mild concentric left ventricular hypertrophy. The left ventricular ejection fraction is normal. Doppler measurements suggest pseudonormalized left ventricular relaxation, which is associated with grade II/IV or mild to moderate diastolic dysfunction. Wall motion cannot be accurately commented on, but no definite regional wall motion abnormalities noted. Right Ventricle The right ventricle is grossly normal size. There is normal right ventricular wall thickness. The right ventricular systolic function is normal. Atria The right atrium is normal in size. The left atrial size is normal. Interarterial septum not well visualized and not well dopplered. Cannot comment on ASD/PFO presence. Mitral Valve The mitral valve is grossly normal. There is no mitral valve stenosis. There is no mitral regurgitation noted. Aortic Valve The aortic valve is grossly normal. There is no aortic valve stenosis. No aortic regurgitation is present. Tricuspid Valve The tricuspid valve is not well visualized secondary to technical limitations. There is no tricuspid stenosis. There is a trace or physiologic amount of tricuspid regurgitation. Pulmonic Valve The pulmonic valve is not well visualized. Great Vessels The aortic root is not well visualized but is probably normal size. The inferior vena cava was not well visualized. Effusions There is no pericardial effusion. Incidental Findings No definite cardiac source of CVA/TIA noted on this particular trans- thoracic study. Consider NICOLA if clinically indicated. May consider mobile cardiac telemetry monitoring (MCT) for ruling out transient AFIB. : ROLAND BURGESS > Yaquelin Damon
[2017-12-28] MEDS: ATORVASTATIN CALCIUM 40 MG TABLET PO SCH (21:25)
[2017-12-28] MEDS: INSULIN GLARGINE,HUM.REC.ANLOG 300 UNIT/3 ML INSULN.PEN SUBCUT SCH (21:25)
[2017-12-28] MEDS: LORAZEPAM 0.5 MG TABLET PO PRN (21:27)
[2017-12-29] MEDS: ENOXAPARIN SODIUM INJ 40 MG/0.4 ML DISP.SYRIN SUBCUT SCH (11:01)
[2017-12-29] MEDS: INSULIN LISPRO 100 UNIT/ML 3 ML VIAL SUBCUT PRN (13:48)
[2017-12-29] MEDS: CYANOCOBALAMIN (VITAMIN B-12) 1,000 MCG TABLET PO SCH (13:53)
[2017-12-29] MEDS: ASPIRIN 325 MG TABLET, ENT COATED PO SCH (13:53)
--- NOTE | 2017-12-29 17:59 | PDOC PROGRESS REPORT ---
Subjective Progress Note for:: 12/29/17 Subjective:: The patient is resting quietly. No new complaints. Reason For Visit: LEFT SIDED WEAKNESS Physical Exam Vital Signs: Temp Pulse Resp BP Pulse Ox 98.1 F 89 18 161/81 H 98 12/29/17 16:09 12/29/17 16:09 12/29/17 16:09 12/29/17 16:09 12/29/17 16:09 Intake & Output 12/28/17 12/29/17 12/30/17 06:59 06:59 06:59 Intake Total 1625 1593 473 Output Total 2150 1325 700 Balance -525 268 -227 Weight 89.1 kg 88.9 kg General appearance: PRESENT: no acute distress, cooperative Head exam: PRESENT: atraumatic, normocephalic Respiratory exam: PRESENT: other - No increased work of breathing. No wheezes, rales, or rhonchi. Cardiovascular exam: PRESENT: RRR. ABSENT: gallop, rubs, systolic murmur Pulses: PRESENT: normal dorsalis pedis pul GI/Abdominal exam: PRESENT: normal bowel sounds. ABSENT: distended, hernia, mass, organolmegaly, soft, tenderness Rectal exam: PRESENT: deferred Musculoskeletal exam: ABSENT: deformity, normal inspection, tenderness Neurological exam: PRESENT: other - Left sided facial droop and left sided hemiplegia. Skin exam: PRESENT: dry, intact, warm Results Laboratory Results: 12/27/17 04:15 12/27/17 04:15 Impressions: Chest X-Ray 12/26/17 00:00 IMPRESSION: No acute cardiopulmonary findings. Head CT 12/26/17 00:00 IMPRESSION: No acute findings. Head MRI 12/26/17 00:00 IMPRESSION: Acute nonhemorrhagic infarct right posterior frontal deep periventricular white matter. EVIDENCE OF ACUTE STROKE: Yes Carotid Doppler Study 12/28/17 14:41 IMPRESSION: NO HEMODYNAMICALLY SIGNIFICANT STENOSIS. Assessment & Plan - Diagnosis (1) Diastolic dysfunction Is this a current diagnosis for this admission?: Yes Plan: Monitor volume. Stable. (2) CVA (cerebral vascular accident) Qualifiers: CVA mechanism: unspecified Qualified Code(s): I63.9 - Cerebral infarction, unspecified Is this a current diagnosis for this admission?: Yes Plan: Pt will need placement. I have discussed with placement. Echocardiogram and Carotid dopplers were unremarkable. MRI demonstrated Right parietal/frontal non- hemorrhagic infarct. Stable. ASA Daily. (3) Diabetes 1.5, managed as type 2 Is this a current diagnosis for this admission?: Yes Plan: Uncontrolled. HbA1c is 13, Diabetic teaching. FSBS and SSI. (4) HTN (hypertension), benign Is this a current diagnosis for this admission?: Yes Plan: Poor control. Will add PAN I. Monitor. (5) Hyperlipidemia LDL goal <100 Is this a current diagnosis for this admission?: Yes Plan: Start Statin. - Time Time Spent with patient: 35 or more minutes Medications reviewed and adjusted accordingly: Yes
[2017-12-29] MEDS: LISINOPRIL 10 MG TABLET PO SCH (18:27)
[2017-12-29] MEDS: INSULIN GLARGINE,HUM.REC.ANLOG 300 UNIT/3 ML INSULN.PEN SUBCUT SCH (22:28)
[2017-12-29] MEDS: ATORVASTATIN CALCIUM 40 MG TABLET PO SCH (22:28)
[2017-12-30] MEDS: ENOXAPARIN SODIUM INJ 40 MG/0.4 ML DISP.SYRIN SUBCUT SCH (09:59)
[2017-12-30] MEDS: CYANOCOBALAMIN (VITAMIN B-12) 1,000 MCG TABLET PO SCH (09:59)
[2017-12-30] MEDS: LISINOPRIL 10 MG TABLET PO SCH (09:59)
[2017-12-30] MEDS: ASPIRIN 325 MG TABLET, ENT COATED PO SCH (09:59)
--- NOTE | 2017-12-30 14:55 | PDOC PROGRESS REPORT ---
Subjective Progress Note for:: 12/30/17 Subjective:: The patient is sitting up at bedside. He has no new complaints. The patient's is at bedside and states that he is improved over yesterday. Reason For Visit: LEFT SIDED WEAKNESS Physical Exam Vital Signs: Temp Pulse Resp BP Pulse Ox 98.4 F 92 17 169/79 H 100 12/30/17 11:22 12/30/17 12:00 12/30/17 12:00 12/30/17 12:00 12/30/17 12:00 Intake & Output 12/29/17 12/30/17 12/31/17 06:59 06:59 06:59 Intake Total 1593 1180 478 Output Total 1325 1950 Balance 268 -770 478 Weight 88.9 kg 87.6 kg General appearance: PRESENT: no acute distress, cooperative Respiratory exam: PRESENT: other - No increased work of breathing. No tactile fremitus.. ABSENT: rales, rhonchi, wheezes Cardiovascular exam: PRESENT: RRR. ABSENT: gallop, rubs, systolic murmur Pulses: PRESENT: normal dorsalis pedis pul GI/Abdominal exam: PRESENT: normal bowel sounds, soft. ABSENT: distended, hernia, mass, organolmegaly, tenderness Rectal exam: PRESENT: deferred Extremities exam: ABSENT: clubbing, joint swelling, tenderness Musculoskeletal exam: PRESENT: normal inspection. ABSENT: dislocation, full ROM , tenderness Neurological exam: PRESENT: alert, awake, oriented to person, oriented to place , oriented to time, oriented to situation, motor sensory deficit - Left sided hemiparesis., other - Left sided facial droop. Psychiatric exam: PRESENT: appropriate affect, normal mood Skin exam: PRESENT: dry, intact, warm Results Laboratory Results: 12/27/17 04:15 12/27/17 04:15 Impressions: Chest X-Ray 12/26/17 00:00 IMPRESSION: No acute cardiopulmonary findings. Head CT 12/26/17 00:00 IMPRESSION: No acute findings. Head MRI 12/26/17 00:00 IMPRESSION: Acute nonhemorrhagic infarct right posterior frontal deep periventricular white matter. EVIDENCE OF ACUTE STROKE: Yes Carotid Doppler Study 12/28/17 14:41 IMPRESSION: NO HEMODYNAMICALLY SIGNIFICANT STENOSIS. Assessment & Plan - Diagnosis (1) Diastolic dysfunction Is this a current diagnosis for this admission?: Yes Plan: Monitor volume. Overall negative fluid balance has been maintained. Stable. (2) CVA (cerebral vascular accident) Qualifiers: CVA mechanism: unspecified Qualified Code(s): I63.9 - Cerebral infarction, unspecified Is this a current diagnosis for this admission?: Yes Plan: Pt will need placement. I have discussed with placement. Echocardiogram and Carotid dopplers were unremarkable. MRI demonstrated Right posterior/frontal deep periventricular white matter non-hemorrhagic infarct. Stable. ASA Daily. (3) Diabetes 1.5, managed as type 2 Is this a current diagnosis for this admission?: Yes Plan: Uncontrolled. HbA1c is 13, Diabetic teaching. FSBS and SSI. FSBS 135-158. (4) HTN (hypertension), benign Is this a current diagnosis for this admission?: Yes Plan: Poor control. Blood pressures remain high despite addition of lisinopril. Continue to adjust medications. Add amlodipine. (5) Hyperlipidemia LDL goal <100 Is this a current diagnosis for this admission?: Yes Plan: Statin. - Time Time Spent with patient: 25-34 minutes Medications reviewed and adjusted accordingly: Yes Anticipated discharge: Acute Rehab
[2017-12-30] MEDS ORDERED: AMLODIPINE BESYLATE 10 MG TABLET PO ONE (16:00)
[2017-12-30] MEDS: ATORVASTATIN CALCIUM 40 MG TABLET PO SCH (22:07)
[2017-12-30] MEDS: INSULIN GLARGINE,HUM.REC.ANLOG 300 UNIT/3 ML INSULN.PEN SUBCUT SCH (22:07)
[2017-12-31] MEDS: LISINOPRIL 10 MG TABLET PO SCH (09:36)
[2017-12-31] MEDS: AMLODIPINE BESYLATE 10 MG TABLET PO SCH (09:36)
[2017-12-31] MEDS: ASPIRIN 325 MG TABLET, ENT COATED PO SCH (09:36)
[2017-12-31] MEDS: CYANOCOBALAMIN (VITAMIN B-12) 1,000 MCG TABLET PO SCH (09:36)
[2017-12-31] MEDS: ENOXAPARIN SODIUM INJ 40 MG/0.4 ML DISP.SYRIN SUBCUT SCH (09:36)
--- NOTE | 2017-12-31 14:24 | PDOC PROGRESS REPORT ---
Subjective Progress Note for:: 12/31/17 Subjective:: The patient is sitting up at bedside. He has no new complaints. He is awaiting evaluation for rehab. Reason For Visit: LEFT SIDED WEAKNESS Physical Exam Vital Signs: Temp Pulse Resp BP Pulse Ox 98.2 F 95 18 138/79 H 100 12/31/17 11:13 12/31/17 12:00 12/31/17 12:00 12/31/17 12:00 12/31/17 12:00 Intake & Output 12/30/17 12/31/17 01/01/18 06:59 06:59 06:59 Intake Total 1180 1718 474 Output Total 1950 500 Balance -770 1218 474 Weight 87.6 kg 86.4 kg General appearance: PRESENT: no acute distress, cooperative, well-developed, well-nourished Respiratory exam: PRESENT: other - No increased work of breathing. No wheezes, rales, or rhonchi. No tactile fremitus. Cardiovascular exam: PRESENT: RRR, other - No lateral PMI. No thrills.. ABSENT : gallop, rubs, systolic murmur Pulses: PRESENT: other - Diminished distal pulses. GI/Abdominal exam: PRESENT: normal bowel sounds, soft. ABSENT: distended, hernia, mass, organolmegaly, tenderness Rectal exam: PRESENT: deferred Extremities exam: ABSENT: clubbing, joint swelling, tenderness Musculoskeletal exam: ABSENT: deformity, dislocation, normal inspection Neurological exam: PRESENT: alert, awake, oriented to person, oriented to place , oriented to time, oriented to situation, motor sensory deficit - Left sided hemiplegia. Psychiatric exam: PRESENT: appropriate affect, normal mood Skin exam: PRESENT: dry, intact, warm Results Laboratory Results: 12/27/17 04:15 12/27/17 04:15 Impressions: Chest X-Ray 12/26/17 00:00 IMPRESSION: No acute cardiopulmonary findings. Head CT 12/26/17 00:00 IMPRESSION: No acute findings. Head MRI 12/26/17 00:00 IMPRESSION: Acute nonhemorrhagic infarct right posterior frontal deep periventricular white matter. EVIDENCE OF ACUTE STROKE: Yes Carotid Doppler Study 12/28/17 14:41 IMPRESSION: NO HEMODYNAMICALLY SIGNIFICANT STENOSIS. Assessment & Plan - Diagnosis (1) Diastolic dysfunction Is this a current diagnosis for this admission?: Yes (2) CVA (cerebral vascular accident) Qualifiers: CVA mechanism: unspecified Qualified Code(s): I63.9 - Cerebral infarction, unspecified Is this a current diagnosis for this admission?: Yes (3) Diabetes 1.5, managed as type 2 Is this a current diagnosis for this admission?: Yes Plan: Uncontrolled. HbA1c is 13, Diabetic teaching. FSBS and SSI. FSBS 143-181. (4) HTN (hypertension), benign Is this a current diagnosis for this admission?: Yes Plan: Poor control. Blood pressures remain high despite addition of lisinopril. Continue to adjust medications. Add amlodipine. (5) Hyperlipidemia LDL goal <100 Is this a current diagnosis for this admission?: Yes Plan: Statin. - Time Time Spent with patient: 25-34 minutes Medications reviewed and adjusted accordingly: Yes
[2017-12-31] MEDS: INSULIN GLARGINE,HUM.REC.ANLOG 300 UNIT/3 ML INSULN.PEN SUBCUT SCH (21:39)
[2017-12-31] MEDS: ATORVASTATIN CALCIUM 40 MG TABLET PO SCH (21:39)
[2018-01-01 05:08] LABS: ABSOLUTE EOSINOPHILS # (AUTO) 0.3 10^3/uL (0.0-0.6); ABSOLUTE LYMPHOCYTES (AUTO) 4.4 10^3/uL (0.5-4.7); ABSOLUTE MONOCYTES (AUTO) 0.6 10^3/uL (0.1-1.4); ABSOLUTE NEUT (AUTO) 3.8 10^3/uL (1.7-8.2); BASOPHILS % (AUTO) 0.3 % (0-2); EOSINOPHILS % (AUTO) 3.1 % (0-6); HEMATOCRIT 48.2 % (37.9-51.0); HEMOGLOBIN 16.6 g/dL (13.5-17.0); MEAN CORPUSCULAR HEMOGLOBIN 28.1 pg (27.0-33.4); MEAN CORPUSCULAR HGB CONC 34.3 g/dL (32.0-36.0); MEAN CORPUSCULAR VOLUME 82 fl (80-97); MONOCYTES % (AUTO) 6.2 % (3-13); PLATELET COUNT 237 10^3/uL (150-450); RED BLOOD COUNT 5.89 10^6/uL (4.35-5.55); RED CELL DISTRIBUTION WIDTH 13.4 % (11.5-14.0); SEGMENTED NEUTROPHILS % (AUTO) 42.4 % (42-78); TOTAL CELLS COUNTED % (AUTO) 100 %; WHITE BLOOD COUNT 9.1 10^3/uL (4.0-10.5)
[2018-01-01 05:28] LABS: ANION GAP 18 (5-19); BLOOD UREA NITROGEN 20 mg/dL (7-20); CALCIUM 9.5 mg/dL (8.4-10.2); CARBON DIOXIDE 19 mmol/L (22-30); CHLORIDE 105 mmol/L (98-107); GLUCOSE 147 mg/dL (75-110); POTASSIUM 4.3 mmol/L (3.6-5.0); SODIUM 141.7 mmol/L (137-145)
[2018-01-01 07:44] VITALS: BP 148/77
--- NOTE | 2018-01-01 08:46 | PDOC TRANSFER SUMMARY ---
General Admission Date/PCP: 12/26/17 03:08 - Transfer Diagnosis (1) Diastolic dysfunction Is this a current diagnosis for this admission?: Yes (2) CVA (cerebral vascular accident) Is this a current diagnosis for this admission?: Yes (3) Diabetes 1.5, managed as type 2 Is this a current diagnosis for this admission?: Yes (4) HTN (hypertension), benign Is this a current diagnosis for this admission?: Yes (5) Hyperlipidemia LDL goal <100 Is this a current diagnosis for this admission?: Yes - Transfer Medications Home Medications: Lisinopril/Hydrochlorothiazide [Lisinopril-Hctz 20-25 mg Tab] 0.5 mg PO DAILY Mecobalamin [Methylcobalamin] 1,000 mcg PO DAILY 12/28/17 Transfer Medications: Current Medications Acetaminophen (Tylenol 325 Mg Tablet) 650 mg PO Q4HP PRN PRN Reason: Temp greater than 101F Stop: 01/25/18 04:17 Amlodipine Besylate (Norvasc 10 Mg Tablet) 10 mg PO DAILY JANICE Stop: 01/30/18 09:59 Last Admin: 12/31/17 09:36 Dose: 10 mg Aspirin (Ecotrin 325 Mg Ec Tablet) 325 mg PO DAILY JANICE Stop: 01/25/18 09:59 Last Admin: 12/31/17 09:36 Dose: 325 mg Atorvastatin Calcium (Lipitor 40 Mg Tablet) 40 mg PO QHS JANICE Stop: 01/25/18 21:59 Last Admin: 12/31/17 21:39 Dose: 40 mg Cyanocobalamin (Vitamin B-12 1000 Mcg Tablet) 1,000 mcg PO DAILY JANICE Stop: 01/28/18 09:59 Last Admin: 12/31/17 09:36 Dose: 1,000 mcg Dextrose (Dextrose Inj 50% Syringe (25 Gm/50 Ml)) 12.5 gm IV PRN PRN; Protocol PRN Reason: FOR BG 50-69 IN ALERT PATIENT Stop: 01/25/18 04:17 Dextrose (Dextrose Inj 50% Syringe (25 Gm/50 Ml)) 25 gm IV PRN PRN; Protocol PRN Reason: See Label Comments Stop: 01/25/18 04:17 Enoxaparin Sodium (Lovenox Inj 40 Mg/0.4 Ml Disp.Syrin) 40 mg SUBCUT DAILY JANICE Stop: 01/25/18 09:59 Last Admin: 12/31/17 09:36 Dose: 40 mg Glucagon (Glucagen Inj 1 Mg Vial) 1 mg SUBCUT PRN PRN; Protocol PRN Reason: Evaluate for BG < 70 Stop: 01/25/18 04:17 Glucose (Glutose 40% Gel 15 Gm Tube) 15 gm PO PRN PRN; Protocol PRN Reason: For BG 50-69 in Alert Patient Stop: 01/25/18 04:17 Glucose (Glutose 40% Gel 15 Gm Tube) 30 gm PO PRN PRN; Protocol PRN Reason: FOR BG < 50 IN ALERT PATIENT Stop: 01/25/18 04:17 Insulin Glargine (Lantus Insulin Inj 300 Unit/3 Ml Pen) 10 unit SUBCUT QHS JANICE Stop: 01/26/18 21:59 Last Admin: 12/31/17 21:39 Dose: 10 units Insulin Human Lispro (Humalog Insulin 100 Unit/1 Ml 3 Ml Vial) 0 - 12 unit SUBCUT ACHSP PRN PRN Reason: Protocol Stop: 01/25/18 16:59 Last Admin: 12/29/17 13:48 Dose: 2 units Lisinopril (Prinivil 10 Mg Tablet) 10 mg PO DAILY JANICE Stop: 01/28/18 18:29 Last Admin: 12/31/17 09:36 Dose: 10 mg Lorazepam (Ativan 0.5 Mg Tablet) 0.5 mg PO Q24H PRN PRN Reason: SLEEP OR INSOMNIA Stop: 01/02/18 23:44 Last Admin: 12/28/17 21:27 Dose: 0.5 mg Ondansetron HCl (Zofran Inj/Pf 4 Mg/2 Ml Sdv) 4 mg IV Q4HP PRN PRN Reason: FOR NAUSEA/VOMITING Stop: 01/25/18 04:17 Last Admin: 12/26/17 21:47 Dose: 4 mg Sodium Chloride (Saline Flush 2.5 Ml Monoject Prefil Syrin) 2.5 ml IV Q8 JANICE Stop: 01/25/18 05:59 Last Admin: 01/01/18 05:57 Dose: 2.5 ml - Allergies Allergies/Adverse Reactions: No Known Allergies Allergy (Unverified 12/26/17 02:45) Hospital Course Hospital Course: The patient was admitted to a telemetry bed. He underwent a stroke work up. His MRI revealed an acute non-hemorrhagic infarct of the right posterior frontal deep periventricular white matter. Carotid doppler and echocardiogram were unrevealing. The patient is participating with physical therapy and the recommendation has been made for the patient to go to rehab. Physical Exam Vital Signs: Temp Pulse Resp BP Pulse Ox 97.8 F 89 17 148/77 H 99 01/01/18 07:07 01/01/18 07:07 01/01/18 07:07 01/01/18 07:07 01/01/18 07:07 Intake & Output 12/31/17 01/01/18 01/02/18 06:59 06:59 06:59 Intake Total 1718 1174 Output Total 500 625 Balance 1218 549 Weight 86.4 kg 87.1 kg General appearance: PRESENT: no acute distress, cooperative Respiratory exam: PRESENT: other - No increased work of breathing. No wheezes, rales, or rhonchi. No tactile fremitus. Cardiovascular exam: PRESENT: RRR. ABSENT: gallop, rubs, systolic murmur Pulses: PRESENT: normal dorsalis pedis pul GI/Abdominal exam: PRESENT: normal bowel sounds, soft. ABSENT: hernia, mass, organolmegaly, tenderness Extremities exam: ABSENT: clubbing, joint swelling, tenderness Musculoskeletal exam: PRESENT: normal inspection. ABSENT: deformity, dislocation Neurological exam: PRESENT: alert, awake, oriented to person, oriented to place , oriented to time, CN II-XII grossly intact, motor sensory deficit - Left sided hemiplegia. Psychiatric exam: PRESENT: appropriate affect, normal mood Skin exam: PRESENT: dry, intact, warm Results Laboratory Results: 01/01/18 04:30 01/01/18 04:30 01/01/18 01/01/18 04:30 04:30 WBC 9.1 RBC 5.89 H Hgb 16.6 Hct 48.2 MCV 82 MCH 28.1 MCHC 34.3 RDW 13.4 Plt Count 237 Seg Neutrophils % 42.4 Lymphocytes % 48.0 H Monocytes % 6.2 Eosinophils % 3.1 Basophils % 0.3 Absolute Neutrophils 3.8 Absolute Lymphocytes 4.4 Absolute Monocytes 0.6 Absolute Eosinophils 0.3 Absolute Basophils 0.0 Sodium 141.7 Potassium 4.3 Chloride 105 Carbon Dioxide 19 L Anion Gap 18 BUN 20 Creatinine 0.57 Est GFR ( Amer) > 60 Est GFR (Non-Af Amer) > 60 Glucose 147 H Calcium 9.5 Impressions: Chest X-Ray 12/26/17 00:00 IMPRESSION: No acute cardiopulmonary findings. Head CT 12/26/17 00:00 IMPRESSION: No acute findings. Head MRI 12/26/17 00:00 IMPRESSION: Acute nonhemorrhagic infarct right posterior frontal deep periventricular white matter. EVIDENCE OF ACUTE STROKE: Yes Carotid Doppler Study 12/28/17 14:41 IMPRESSION: NO HEMODYNAMICALLY SIGNIFICANT STENOSIS. Plan Discharge Plan: Discharge to [facility]. Time Spent: Greater than 30 Minutes
[2018-01-01] MEDS: LISINOPRIL 10 MG TABLET PO SCH (08:59)
[2018-01-01] MEDS: CYANOCOBALAMIN (VITAMIN B-12) 1,000 MCG TABLET PO SCH (08:59)
[2018-01-01] MEDS: ASPIRIN 325 MG TABLET, ENT COATED PO SCH (08:59)
[2018-01-01] MEDS: AMLODIPINE BESYLATE 10 MG TABLET PO SCH (09:00)
[2018-01-01] MEDS: ENOXAPARIN SODIUM INJ 40 MG/0.4 ML DISP.SYRIN SUBCUT SCH (09:00)
== END 2018-01-01 10:35 | disposition short-term general hospital (02) | DRG 65 ==
LOC: ER 00:36 → EH 03:08 → 3W 04:47
PROVIDERS: ADMIT Family Medicine; ATTEND Family Medicine
DX: I63.8 Other cerebral infarction (principal); G81.94 Hemiplegia, unspecified affecting left nondominant side; E78.5 Hyperlipidemia, unspecified; E11.65 Type 2 diabetes mellitus with hyperglycemia; R29.810 Facial weakness; R47.81 Slurred speech; I10 Essential (primary) hypertension; R29.704 NIHSS score 4; Z87.891 Personal history of nicotine dependence
CPT/HCPCS: 36415; 70450; 70551; 71045; 80048; 80053; 80061; 81001; 82962; 83036; 85025; 85610; 85730; 93005; 93010; 93306; 93880; 99285; J1650; J1815; J2060; J2405; J2765; J3490; J7030